=== PATIENT | female | born 1970 | race Two or more races ===

== ENCOUNTER 2021-07-04 08:20 | Emergency (ER) | payer MEDICAID ==
[~2021-07-04] VITALS: Ht 152.4 cm; Wt 69.0 kg
[2021-07-04] MEDS ORDERED: IBUPROFEN 600MG TABLET PO ONE (09:15)
[2021-07-04] MEDS ORDERED: GUAIFENESIN/DM 600MG/30MG ER TAB 12HR PO ONE (09:15)
[2021-07-04] MEDS ORDERED: IBUP-2029 MT (09:16)
[2021-07-04] MEDS ORDERED: GUAI600T26 MT (09:16)
[2021-07-04 09:22] VITALS: BP 164/97
== END 2021-07-04 10:38 | disposition home or self-care (01) ==
LOC: ER 10:03
DX: B34.9 Viral infection, unspecified (principal); G51.0 Bell's palsy; I10 Essential (primary) hypertension; Z20.822 Contact with and (suspected) exposure to COVID-19; K21.9 Gastro-esophageal reflux disease without esophagitis; Z98.890 Other specified postprocedural states; Z79.899 Other long term (current) drug therapy
CPT/HCPCS: 99283; C9803; U0003; U0005